=== PATIENT | male | born 1955 | race Caucasian/White ===

== ENCOUNTER → 2016-08-10 | Outpatient (CLI) | payer OTHER ==
[~2016-08-10] MED LIST: ALBUTEROL MININEB; ALBUTEROL17 GM INH; ALEVE220 M1 PO; ATIVAN2 M1 PO; ATIVAN2 MG PO; BACTRIM DS TABL1 TA1 PO; BACTROBAN22 GM TP; CARBATROL200 MG PO; CIALIS2.5 MG PO; CIPRO PO; FLEXERIL PO; FLOVENT HFA10.6 GM INH; FLOVENT7.9 GM INH; NEXIUM PO; NIACIN500 M2 PO; PERCOCET 5-3251 TAB PO; PRAVACHOL20 MG PO; PROTONIX20 MG DOB; REMERON15 MG PO; SEROQUEL PO; SEROQUEL XR200 MG DOB; SINGULAIR PO; TEGRETOL PO; TEGRETOL-XR200 MG PO; WELLBUTRIN PO; WELLBUTRIN SR150 MG PO; WELLBUTRIN XL150 M1 PO
[2016-08-10 18:53] LABS: BASOPHIL% 0.9 % (0-2.5); EOSINOPHIL# 0.2 X10e3 (0-0.7); EOSINOPHIL% 4.4 % (0.0-7.0); HEMATOCRIT 41.6 % (38.0-50.0); HEMOGLOBIN 13.7 gm/dL (13.0-16.0); LYMPHOCYTE# 1.5 X10e3 (1.0-3.5); LYMPHOCYTE% 29.3 % (17.0-45.0); MEAN CELL VOLUME 86.3 FL (83-96); MEAN CORPUSCULAR HEMOGLOBIN 28.4 PG (28-34); MEAN CORPUSCULAR HGB CONC 32.9 g/dL (30-36); MEAN PLATELET VOLUME 7.6 FL (6.5-11.5); MONOCYTE# 0.4 X10e3 (0-1.0); MONOCYTE% 7.7 % (3.0-12.0); NEUTROPHIL% 57.7 % (40-75); PLATELET COUNT 206 X10e3 (140-420); RED BLOOD COUNT 4.82 X10e (3.90-5.60); WHITE BLOOD COUNT 5.1 X10e3 (4.0-10.5)
[2016-08-10 18:54] LABS: DIFF IND NO
[2016-08-10 19:21] LABS: ALBUMIN SERUM 4.8 g/dL (3.5-5.0); BILIRUBIN,TOTAL 0.6 mg/dL (0.2-2.0); CALCIUM SERUM 8.9 mg/dL (8.4-10.2); GLOM FILT RATE Estimated 81.5 mL/min (>60); POTASSIUM 4.6 mmol/L (3.5-5.1); PROTEIN TOTAL SERUM 7.7 g/dL (6.0-8.3); TEGRETOL (CARBAMAZEPINE) 8.8 ug/mL (4.0-12.0)
[2016-08-10 19:56] LABS: CHOLESTEROL 175 mg/dL (0-200); HDL CHOLESTEROL 45 mg/dL (29-75); LDL CHOLESTEROL 101 mg/dL (-130); LDL/HDL RATIO 2 RATIO (0-4); TRIGLYCERIDES 144 mg/dL (10-160)
[2016-08-10 19:58] LABS: THYROID STIMULATING HORMONE 1.36 uIU/ml (0.34-5.60)
[2016-08-10 20:02] LABS: FREE T3 3.4 pg/mL (2.5-3.9)
[2016-08-10 20:04] LABS: FREE THYROXIN (T4) 0.65 ng/dL (0.58-1.64)
== END | disposition home or self-care (01) ==
LOC: CLAB 18:26
DX: M51.37 Other intervertebral disc degeneration, lumbosacral region (principal); F33.42 Major depressive disorder, recurrent, in full remission; F63.81 Intermittent explosive disorder; K21.9 Gastro-esophageal reflux disease without esophagitis
CPT/HCPCS: 36415; 80053; 80061; 80156; 83036; 84439; 84443; 84481; 85025